=== PATIENT | male | born 1945 | race Two or more races ===

== ENCOUNTER 2023-03-05 09:32 | Emergency (ER) | payer MEDICARE, OTHER ==
[2023-03-05 09:41] VITALS: TEMP 98
[2023-03-05] MEDS ORDERED: KETOROLAC 15 MG/ML 1 ML VIAL IM STA (09:49)
[2023-03-05] MEDS ORDERED: ORPHENADRINE 30 MG/ML 2 ML VIAL IM STA (09:49)
--- NOTE | 2023-03-05 09:49 | ED ---
Neck Injury/Pain HPI - General Chief Complaint: Neck Pain/Injury Stated Complaint: neck & back pain Time Seen by Provider: 03/05/23 09:42 Source: patient, RN notes reviewed Mode of arrival: ambulatory Limitations: no limitations - History of Present Illness Initial Comments: This is a 77 year old male who presents to the emergency department for neck larry n. States that when he woke up yesterday morning, he had a painful and stiff neck, however today the symptoms persisted and have not gotten any better. He put BenGay cream on it with no relief. Denies any injuries. States that the pain goes down the back and left arm as well. Any movement makes this painful. Denies any headaches or fevers. Denies any fevers, chills, sore throat, cough, dyspnea, chest pain, palpitations, abdominal pain, nausea, vomiting, diarrhea, or headaches. MD Complaint: neck pain Onset/Timin -: days(s) - Related Data Previous Rx's Medication Instructions Recorded methocarbamoL [Robaxin-750] 750 mg PO QID PRN #20 tab 03/05/23 predniSONE 50 mg PO DAILY 5 Days #5 tab 03/05/23 Allergies Allergy/AdvReac Type Severity Reaction Status Date / Time No Known Allergies Allergy Verified 03/05/23 09:41 Review of Systems ROS Statement: Those systems with pertinent positive or pertinent negative responses have been documented in the HPI. ROS Other: All systems not noted in ROS Statement are negative. Past Medical History Past Medical History: Diabetes Mellitus History of Any Multi-Drug Resistant Organisms: None Reported Past Surgical History: No Surgical Hx Reported Past Psychological History: No Psychological Hx Reported Smoking Status: Current every day smoker Past Alcohol Use History: None Reported Past Drug Use History: None Reported General Exam Limitations: no limitations General appearance: alert, in no apparent distress Head exam: Present: atraumatic, normocephalic, normal inspection Neck exam: Present: other (Tenderness to palpation over the posterior and left cervical spine. There is also tenderness to palpation of the left trapezius muscle. Limited range of motion secondary to pain.) Respiratory exam: Present: normal lung sounds bilaterally. Absent: respiratory distress, wheezes, rales, rhonchi, stridor Cardiovascular Exam: Present: regular rate, normal rhythm, normal heart sounds. Absent: systolic murmur, diastolic murmur, rubs, gallop, clicks Extremities exam: Present: other (Range of motion of the left upper extremity causes pain. 2+ radial pulses.) Neurological exam: Present: alert, oriented X3, CN II-XII intact Psychiatric exam: Present: normal affect, normal mood Skin exam: Present: warm, dry, intact, normal color. Absent: rash Course Vital Signs 03/05/23 03/05/23 09:38 12:45 Temperature 98 F Pulse Rate 102 H 78 Respiratory 22 18 Rate Blood Pressure 132/76 134/78 O2 Sat by Pulse 99 99 Oximetry Medical Decision Making - Medical Decision Making This is a 77-year-old male who presents to the emergency department for neck pain. Was pt. sent in by a medical professional or institution? @ -No Did you speak to anyone other than the patient for history? @ -No Did you review nursing and triage notes? @ -Yes, and I agree, it is accurate with regards to the patient's symptoms. Were old charts reviewed? @ -No Differential Diagnosis? @ -Differential Neck Pain: Fracture, dislocation, contusion, strain, DDD, disc herniation, this is not meant to be an all-inclusive list. EKG interpreted by me (3pts min.)? @ -Not obtained X-rays interpreted by me (1pt min.)? @ -XR of the left shoulder and cervical spine obtained. My interpretation identifies no acute fractures or dislocations. CT interpreted by me (1pt min.)? @ -Not obtained U/S interpreted by me (1pt. min.)? @ -Not obtained What testing was considered but not performed? (CT, X-rays, U/S, labs)? Why? @ -None What meds were considered but not given? Why? @ -None Did you discuss the management of the patient with other professionals? @ -No Did you reconcile home meds? @ -No Was smoking cessation discussed for >3mins.? @ -No Was critical care preformed (if so, how long)? @ -No Were there social determinants of health that impacted care today? How? (Homelessness, low income, unemployed, alcoholism, drug addiction, transportation, low edu. Level, literacy, decrease access to med. care, senior care, rehab)? @ -No Was there de-escalation of care discussed even if they declined? (Discuss DNR or withdrawal of care, Hospice)? @ -No What co-morbidities impacted this encounter? (DM, HTN, Smoking, COPD, CAD, Cancer, CVA, Hep., AIDS, mental health diagnosis, sleep apnea, morbid obesity)? @ -DM Was patient admitted / discharged? @ -Discharged. Patient's pain was entirely reproducible on examination. He was initially treated with Norflex and Toradol, which was not entirely effective. He was subsequently given a dose of Valium, which he found more beneficial. XR of the left shoulder and cervical spine obtained revealing foraminal narrowing at C4-5 bilaterally, worse on the left. After being treated with medications, patient had reduced levels of pain and significantly increased range of motion. Symptoms most likely related to a cervical strain and radiculopathy. Prescription for prednisone and Robaxin provided with dosing instructions reviewed. Advised that the Robaxin can be sedating and he should avoid driving or operating machinery when taking this. Undiagnosed new problem with uncertain prognosis? @ -None Drug Therapy requiring intensive monitoring for toxicity (Heparin, Nitro, Insulin, Cardizem)? @ -None Were any procedures done? @ -None Diagnosis/symptom? @ -Cervical strain, foraminal narrowing Acute, or Chronic, or Acute on Chronic? @ -Acute Uncomplicated (without systemic symptoms) or Complicated (systemic symptoms)? @ -Uncomplicated Side effects of treatment? @ -None Exacerbation, Progression, or Severe Exacerbation] @ -Not applicable Poses a threat to life or bodily function? @ -No Return precautions reviewed in depth, the patient is instructed to return to the emergency department with any new, worsening, or concerning symptoms. Patient verbalized understanding. This case was discussed in detail with the attending ED physician, Dr. Woodard. Presentation, findings, and treatment plan discussed in detail as well. - Radiology Data Radiology results: report reviewed, image reviewed Disposition Clinical Impression: Cervical strain, Foraminal stenosis of cervical region Disposition: HOME SELF-CARE Instructions (If sedation given, give patient instructions): Cervical Strain (ED) Additional Instructions: Return to the emergency department with any new, worsening, or concerning symptoms. Take the prednisone daily for 5 days. You can take the Robaxin up to 4 times daily as needed for pain and tightness. Be aware that this may make you drowsy and you should avoid driving or operating machinery when taking this. F ollow up with your primary care provider in 1-2 days. Prescriptions: predniSONE 50 mg PO DAILY 5 Days #5 tab methocarbamoL [Robaxin-750] 750 mg PO QID PRN #20 tab PRN Reason: Pain Is patient prescribed a controlled substance at d/c from ED?: No Referrals: Imer Lee DO [Primary Care Provider] - 1-2 days
[2023-03-05] MEDS ORDERED: HYDROcodone/APAP 5-325MG 1 EACH TAB PO STA (10:38)
--- NOTE | 2023-03-05 10:44 | XR ---
EXAMINATION TYPE: XR shoulder complete LT DATE OF EXAM: 03/05/2023 COMPARISON: NONE HISTORY: Pain TECHNIQUE: Shoulder examined in 3 projections. FINDINGS: The humeral head articulates with the glenoid. The acromio-clavicular junction is normal. No acute fractures or dislocations are evident. A follow up study can be performed 7-10 days from acute trauma for continued pain. MRI can be perfor med if soft tissue evaluation would be of benefit. IMPRESSION: 1. No acute osseous left shoulder abnormality.
--- NOTE | 2023-03-05 10:47 | XR ---
EXAMINATION TYPE: XR cervical spine comp DATE OF EXAM: 03/05/2023 COMPARISON: None HISTORY: Stiff neck TECHNIQUE: 5 view cervical spine, supplemented with a swimmer's view FINDINGS: Prevertebral space is normal. 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 Degenerative d isc changes are present C4-5. Small anterior vertebral body spurs are present at C6-7. Posterior spin al lamellar line is intact. There is mild foraminal narrowing C4-5 on the right. Moderate foraminal narrowing C4-5 on the left is present. Minimal foraminal narrowing may be present C5-6. IMPRESSION: 1. Foraminal narrowing C4-5 bilaterally, greater on the left
[2023-03-05] MEDS ORDERED: diazePAM 2 MG TAB PO STA (11:22)
[2023-03-05] MEDS ORDERED: ACET/COD 300 MG/30 MG STARTER PACK 6 TAB BTL PO STA (12:17)
[2023-03-05] MEDS ORDERED: IBUPROFEN 600 MG STARTER PACK 4 TAB BTL PO STA (12:17)
[2023-03-05 12:46] VITALS: BP 134/78; PULSE 78; RESP 18
== END 2023-03-05 12:45 | disposition home or self-care (01) ==
LOC: EC 09:32
DX: S16.1XXA Strain of muscle, fascia and tendon at neck level, initial encounter (principal); E11.9 Type 2 diabetes mellitus without complications; F17.200 Nicotine dependence, unspecified, uncomplicated; X58.XXXA Exposure to other specified factors, initial encounter
CPT/HCPCS: 72050; 73030; 99283; 96372 ×2; J2360; J1885